=== PATIENT | female | born 1965 | race Caucasian/White ===

== ENCOUNTER 2023-05-13 07:27 | Outpatient (CLI) | payer OTHER ==
[~2023-05-13] VITALS: Ht 157.5 cm; Wt 100.0 kg
[2023-05-13] MEDS ORDERED: RT-ALBUINH INH (16:59)
[2023-05-13] MEDS ORDERED: FLUT1DIS26 IH (16:59)
== END 2023-05-13 17:19 | disposition home or self-care (01) ==
LOC: PREOP 07:27
PROVIDERS: ATTEND Obstetrics & Gynecology
DX: Z01.818 Encounter for other preprocedural examination (principal)